=== PATIENT | male | born 1965 | race Caucasian/White ===

== ENCOUNTER 2017-08-09 08:19 | Emergency (ER) | payer OTHER ==
[~2017-08-09] VITALS: Ht 177.8 cm; Wt 72.6 kg
[2017-08-09] MEDS ORDERED: HYDROMORPHONE 4 MG/1 ML DISP.SYRIN ONE (08:30)
[2017-08-09] MEDS ORDERED: HYDROMORPHONE 1 MG/1 ML DISP.SYRIN IM ONE (08:30)
[2017-08-09] MEDS ORDERED: ONDANSETRON ODT 4 MG TAB.RAPDIS SL ONE (08:30)
[2017-08-09] MEDS ORDERED: ONDANSETRON ODT 4 MG TAB.RAPDIS ONE ×2 (08:31→08:38)
--- NOTE | 2017-08-09 11:34 | NUR ---
kehinde anderson talking to dr. cuellar for ortho consult.
[2017-08-09] MEDS ORDERED: PROPOFOL 200 MG/20 ML BOTTLE ONE (12:12)
--- NOTE | 2017-08-09 12:25 | NUR ---
DR. STINSON REDUCED THE RIGHT ANKLE WITHOUT DIFFICULTY. PT AWAKE AND ORIENTED IMMEDIARTELY. VS STABLE.
[2017-08-09] MEDS ORDERED: NEOMY/BACITRA/POLYMYXIN B OINT UD PACKET TP ONE ×2 (12:28→12:45)
[2017-08-09] MEDS ORDERED: ONDANSETRON 4 MG/2 ML VIAL ONE (12:38)
[2017-08-09] MEDS ORDERED: MORPHINE SULFATE 4 MG/1 ML DISP.SYRIN ONE (12:38)
[2017-08-09] MEDS ORDERED: ONDANSETRON 4 MG/2 ML VIAL IV ONE (12:45)
[2017-08-09] MEDS ORDERED: MORPHINE SULFATE 4 MG/1 ML DISP.SYRIN IV ONE (12:45)
[2017-08-09] MEDS ORDERED: PROPOFOL 200 MG/20 ML BOTTLE IV ONE (13:30)
--- NOTE | 2017-08-09 14:18 | NUR ---
Patient discharged to home in stable conditon. Written and verbal after care instructions given. Patient verbalizes understanding of instructions.PT HERE TO TAKE THE PT HOME. Addendum: 08/09/17 at 1642 by ANNIKA PT PAIN DOWN TO TOLERABLE LEVEL. PT REFUSES MORE PAIN MED AT THIS TIME. PT WILL FOLLOW UP WITH ORTHO.
[2017-08-09 15:51] VITALS: BP 131/87
[2017-08-16] MEDS ORDERED: ACET325T53 PO (14:59)
[2017-08-16] MEDS ORDERED: LACT1CAP57 PO (14:59)
[2017-08-16] MEDS ORDERED: CLIN300C11 PO (14:59)
== END 2017-08-09 14:18 | disposition home or self-care (01) ==
LOC: ER 08:19
DX: S82.851A Displaced trimalleolar fracture of right lower leg, initial encounter for closed fracture (principal); W01.0XXA Fall on same level from slipping, tripping and stumbling without subsequent striking against object, initial encounter; Y93.89 Activity, other specified; Y92.89 Other specified places as the place of occurrence of the external cause; Y99.8 Other external cause status
CPT/HCPCS: 73610; 73700; A4663; J1170; J2270; J2405; J3490; Q0162

== ENCOUNTER 2017-08-14 23:20 | Inpatient (IN) | payer OTHER ==
[~2017-08-14] VITALS: Ht 175.3 cm; Wt 76.2 kg
[2017-08-15] MEDS ORDERED: CLINDAMYCIN PHOSPHATE IV 600 MG in IV DEXTROSE 5% 100 ML IV ONE (00:15)
[2017-08-15] MEDS ORDERED: PIPERACILLIN SODIUM/TAZOBACTAM 3.375 G in IV DEXTROSE 5% 50 ML IV ONE (00:15)
[2017-08-15] MEDS ORDERED: KETAMINE HCL 500 MG/10 ML INJ IV ONE ×2 (00:15→03:00)
[2017-08-15] MEDS ORDERED: VANCOMYCIN IV 1,000 MG in IV DEXTROSE 5% 250 ML IV ONE (00:15)
[2017-08-15] MEDS ORDERED: IV NORMAL SALINE 1000 ML BAG IV ONE (00:15)
[2017-08-15] MEDS ORDERED: KETAMINE HCL 500 MG/10 ML INJ ONE ×2 (00:16→03:06)
[2017-08-15] MEDS ORDERED: PIPERACILLIN/TAZOBACTAM/D5W 50 ML IV ONE (00:16)
[2017-08-15 00:25] LABS: BASOPHILS # (AUTO) 0.1 K/uL (0.0-8.0); BASOPHILS % (AUTO) 0.8 % (0.0-2.0); EOSINOPHILS # (AUTO) 0.2 K/uL (0.0-0.7); EOSINOPHILS % (AUTO) 2.1 % (0.0-7.0); HEMATOCRIT 43.2 % (36.7-47.1); LYMPHOCYTES # (AUTO) 3.5 K/uL (20.0-40.0); LYMPHOCYTES % (AUTO) 38.3 % (20.5-51.5); MEAN CORPUSCULAR HEMOGLOBIN 30.1 uug (23.8-33.4); MEAN CORPUSCULAR HGB CONC 35 g/dL (32.5-36.3); MEAN CORPUSCULAR VOLUME 86.6 fL (73.0-96.2); MONOCYTES % (AUTO) 10.8 % (0.0-11.0); NEUTROPHILS # (AUTO) 4.4 K/uL (1.8-8.9); PLATELET COUNT (AUTO) 262 K/uL (152-348); RED BLOOD CELL COUNT(AUTO) 4.99 MIL/uL (4.06-5.63); WHITE BLOOD COUNT (AUTO) 9.1 K/uL (3.6-10.2)
--- NOTE | 2017-08-15 00:29 | NUR ---
PT IN BED. PT'S SPOUSE AT BEDSIDE. NS FLUID AND ANTIBIOTICS RUNNING. BREATH SOUNDS REGULAR AND UNLABORED. NO SIGNS OF DISTRESS WITNESSED BY NURSE OR STATED BY PT.
[2017-08-15 00:42] LABS: BILIRUBIN,DIRECT 0.2 mg/dL (0.0-0.2); BILIRUBIN,TOTAL 0.8 mg/dL (0.2-1.0); TOTAL PROTEIN, SERUM 8.1 g/dL (6.4-8.2)
[2017-08-15] MEDS ORDERED: CLINDAMYCIN PHOSPHATE 600 MG/4 ML VIAL ONE (01:02)
--- NOTE | 2017-08-15 01:21 | NUR ---
PAGED EPPIC PANEL DR MARTIN REQUESTED. WAITING FOR STEVEN ROMANO DNP TO CALL BACK
[2017-08-15 01:22] LABS: *BILIRUBIN,URIN NEGATIVE (NEGATIVE); *BLOOD, URINE 1+ (NEGATIVE); *CLARITY,URINE CLEAR (CLEAR); *COLOR,URINE YELLOW (YELLOW); *KETONES,URINE NEGATIVE (NEGATIVE); *PROTEIN,URINE NEGATIVE (NEGATIVE); *UROBILINOGEN,URINE 0.2 E.U./dl (NORMAL); LEUKOCYTE ESTERASE ,URINE NEGATIVE (NEGATIVE); NITRITE, URINE NEGATIVE (NEGATIVE); UGLUCOSE NEGATIVE (NEGATIVE)
--- NOTE | 2017-08-15 01:25 | NUR ---
DR MARTIN SPEAKING WITH STEVEN ROMANO DNP
[2017-08-15 01:49] LABS: BACTERIA,URINE NONE SEEN /HPF (NONE SEEN); MUCUS,URINE FEW /LPF (0-FEW); SQUAMOUS EPITHELIAL CELL,UR FEW /HPF (NONE SEEN); WBC,URINE 0-3 /HPF (0-3)
[2017-08-15] MEDS ORDERED: VANCOMYCIN IV 200 ML ONE (02:21)
--- NOTE | 2017-08-15 03:12 | NUR ---
IV KETAMINE DECLINED. PT REQUESTS PO PERCOCET
[2017-08-15] MEDS ORDERED: OXYCODONE/APAP 5-325 MG TABLET PO ONE (03:15)
[2017-08-15] MEDS ORDERED: OXYCODONE/APAP 5-325 MG TABLET ONE (03:17)
--- NOTE | 2017-08-15 03:41 | NUR ---
REPORT GIVEN TO MARGARITA ALLRED.
--- NOTE | 2017-08-15 04:05 | NUR ---
Pt. admitted to TELEMETRY, under care of Dr. PEPE Belongs List completed
--- NOTE | 2017-08-15 04:06 | NUR ---
Received patient via [employer] alert and oriented x 4 with at bedside. Pt complaining of pain on R foot/ankle, which is noted to be swelling with serosanguineous discharge. Right leg/foot elevated via pillows. Tele noted to be sinus rhythm with HR in the 90's. No respiratory distress noted at this time. Vital signs WNL. Unit orientation provided. Will continue to monitor.
[2017-08-15] MEDS ORDERED: MAGNESIUM HYDROXIDE 30 ML LIQUID UDC PO PRN (04:45)
[2017-08-15] MEDS ORDERED: HYDROMORPHONE 2 MG/1 ML DISP.SYRIN IV PRN (04:45)
[2017-08-15] MEDS ORDERED: ACETAMINOPHEN 325 MG TABLET PO PRN (04:45)
[2017-08-15] MEDS ORDERED: Z GUARD REMEDY PASTE 57 GM TUBE TOP PRN (04:45)
[2017-08-15] MEDS: HYDROCODONE/APAP 10-325 MG TABLET PO PRN (05:18)
[2017-08-15] MEDS: IV NS 1000 ML 1,000 ML IV PRN (05:20)
[2017-08-15 06:53] LABS: BASOPHILS # (AUTO) 0.1 K/uL (0.0-8.0); BASOPHILS % (AUTO) 0.7 % (0.0-2.0); EOSINOPHILS # (AUTO) 0.1 K/uL (0.0-0.7); HEMATOCRIT 40.5 % (36.7-47.1); HEMOGLOBIN 13.8 g/dL (12.5-16.3); LYMPHOCYTES # (AUTO) 2.6 K/uL (20.0-40.0); LYMPHOCYTES % (AUTO) 28.2 % (20.5-51.5); MEAN CORPUSCULAR HEMOGLOBIN 30.1 uug (23.8-33.4); MEAN CORPUSCULAR HGB CONC 34 g/dL (32.5-36.3); MEAN CORPUSCULAR VOLUME 88.1 fL (73.0-96.2); MONOCYTES # (AUTO) 0.8 K/uL (2.0-10.0); MONOCYTES % (AUTO) 8.3 % (0.0-11.0); NEUTROPHILS # (AUTO) 5.6 K/uL (1.8-8.9); NEUTROPHILS % (AUTO) 61.8 % (38.5-71.5); PLATELET COUNT (AUTO) 230 K/uL (152-348); RED BLOOD CELL COUNT(AUTO) 4.59 MIL/uL (4.06-5.63); WHITE BLOOD COUNT (AUTO) 9.1 K/uL (3.6-10.2)
[2017-08-15 07:40] LABS: MAGNESIUM 2.1 mg/dL (1.8-2.4); PHOSPHOROUS 3.9 mg/dL (2.5-4.9); POTASSIUM 4.2 mmol/L (3.5-5.1)
[2017-08-15] MEDS ORDERED: MORPHINE SULFATE 4 MG/1 ML DISP.SYRIN IV ONE (08:00)
--- NOTE | 2017-08-15 08:00 | NUR ---
ALERT AND ORIENTED X3 NO SS OF DISTRESS OR CP, CONTINUE WITH PAIN MANAGEMENT. RIGHT LEG NOTED WITH BLISTER AND NECROSIS SKIN WITH MODERATE DRAINAGE. DENIES NUMBNESS, ABLE TO WIGGLE TOES FREELY. BARD TO PALPATE PEDAL PULSE DUE TO SWELLING. CLOSELY MONITORED. SR ON MONITOR
[2017-08-15 08:01] LABS: THYROID STIMULATING HORMONE 0.857 mIU/mL (0.358-3.740)
[2017-08-15] MEDS: CLINDAMYCIN PHOSPHATE IV 900 MG in IV DEXTROSE 5% 100 ML IV SCH ×2 (08:09→16:39)
[2017-08-15] MEDS: PIPERACILLIN SODIUM/TAZOBACTAM 4.5 G in IV DEXTROSE 5% 50 ML IV SCH ×3 (08:09→23:21)
[2017-08-15] MEDS: ENOXAPARIN SODIUM 40 MG/0.4 ML DISP.SYRIN SQ SCH (08:15)
--- NOTE | 2017-08-15 10:00 | NUR ---
AT BEDSIDE VERY CONCERN OF PATIENT STATUS, SPOKE WITH BRICK OR BLOCK MAKER THE ISSUE. CONTACTED [employer] PER BRICK OR BLOCK MAKER
--- NOTE | 2017-08-15 10:35 | NUR ---
CLINICAL PHARMACY NOTE: VANCOMYCIN PHARMACY TO DOSE Subjective: To start vanco for this 52 y/o male for cellulitis (necrotic tissue?- waiting for MD note) Patient received vanco 1gm IVPB x1 in ED on 08/15 at 0230 Objective: height 175 cm weight 76.2 kg BUN 14 Scr 1 wbc 9.1 temp 98.4 Assessment/Plan Will start vanco 1250mg IVPB q13h for predicted vanco trough level of 16.5 mcg/ml at steady state. 1st dose is due today at 1200. Plan to draw vanco trough level before 4th dose (not yet ordered). Will monitor renal function & adjust the dose if needed. Will follow
[2017-08-15 11:07] VITALS: BP 132/94
[2017-08-15] MEDS: VANCOMYCIN IV 1,250 MG in IV DEXTROSE 5% 500 ML IV SCH (11:46)
--- NOTE | 2017-08-15 12:00 | NUR ---
AWAITING ORTHO AND WOUND WOUND CONSULT DR PEPE ALSO AWARE OF PATIENT STATUS
--- NOTE | 2017-08-15 14:48 | NUR ---
DR WARD CALLED COR CONSULT SPOKE WITH PATIENT AND ABOUT PLAN OF CARE. PT KEPT NPO FOR POSSIBLE DEBRIDEMENT THIS EVENING
[2017-08-15 15:06] VITALS: BP 141/97
[2017-08-15] MEDS: MORPHINE SULFATE 4 MG/1 ML DISP.SYRIN IV PRN ×2 (15:28→20:33)
[2017-08-15] MEDS: ONDANSETRON 4 MG/2 ML VIAL IV PRN ×2 (15:37→22:05)
--- NOTE | 2017-08-15 15:49 | NUR ---
NAUSEATED MEDICATED WITH ZOFRAN WILL OBSERVE
[2017-08-15] MEDS: SODIUM HYPOCHLORITE 0.5% TOP SCH (16:39)
--- NOTE | 2017-08-15 18:58 | NUR ---
SEEN BY DR YANG AND DR WARD FOR WOUND AND ORTHO CONSULT SEE NOTES
[2017-08-15 20:00] VITALS: BP 147/87
[2017-08-15] MEDS: LACTOBACILLUS RHAMNOSUS GG 1 EACH CAPSULE PO SCH (20:33)
[2017-08-16] MEDS: MORPHINE SULFATE 4 MG/1 ML DISP.SYRIN IV PRN ×3 (00:01→10:05)
[2017-08-16] MEDS: IV NS 1000 ML 1,000 ML IV PRN (01:27)
[2017-08-16] MEDS: CLINDAMYCIN PHOSPHATE IV 900 MG in IV DEXTROSE 5% 100 ML IV SCH ×2 (01:53→08:35)
--- NOTE | 2017-08-16 02:00 | NUR ---
WOUND CARE PROVIDED. PT TOLERATED IT WELL.
[2017-08-16 04:47] VITALS: BP 116/65
--- NOTE | 2017-08-16 05:30 | NUR ---
SECOND DRESSING CHANGE/WOUND CARE PROVIDED. WOUND REMAINS INTACT WITH NO ODOR AND DISCHARGE NOTED. RIGHT FOOT KEPT ELEVATED VIA PILLOWS. CALL LIGHT WITHIN REACH. SAFETY MEASURES PROVIDED. WILL CONTINUE TO MONITOR.
[2017-08-16 06:45] LABS: BASOPHILS # (AUTO) 0.1 K/uL (0.0-8.0); BASOPHILS % (AUTO) 0.7 % (0.0-2.0); EOSINOPHILS # (AUTO) 0.2 K/uL (0.0-0.7); EOSINOPHILS % (AUTO) 2.2 % (0.0-7.0); HEMATOCRIT 38.1 % (36.7-47.1); HEMOGLOBIN 13.2 g/dL (12.5-16.3); LYMPHOCYTES # (AUTO) 2.6 K/uL (20.0-40.0); LYMPHOCYTES % (AUTO) 33.5 % (20.5-51.5); MEAN CORPUSCULAR HEMOGLOBIN 30.3 uug (23.8-33.4); MEAN CORPUSCULAR HGB CONC 35 g/dL (32.5-36.3); MEAN CORPUSCULAR VOLUME 87.5 fL (73.0-96.2); MONOCYTES # (AUTO) 0.9 K/uL (2.0-10.0); MONOCYTES % (AUTO) 11.2 % (0.0-11.0); NEUTROPHILS # (AUTO) 4.1 K/uL (1.8-8.9); NEUTROPHILS % (AUTO) 52.4 % (38.5-71.5); PLATELET COUNT (AUTO) 233 K/uL (152-348); RED BLOOD CELL COUNT(AUTO) 4.36 MIL/uL (4.06-5.63); WHITE BLOOD COUNT (AUTO) 7.9 K/uL (3.6-10.2)
[2017-08-16 06:51] LABS: CREATININE 1.2 mg/dL (0.6-1.3); MAGNESIUM 2.2 mg/dL (1.8-2.4); POTASSIUM 3.9 mmol/L (3.5-5.1)
--- NOTE | 2017-08-16 07:44 | NUR ---
RESTING IN BED WITH SS OF ACUTE PAIN OR DISTRESS. RIGHT LEG ELEVATED WITH 2-3 PILLOWS. AFEBRILE
[2017-08-16] MEDS: LACTOBACILLUS RHAMNOSUS GG 1 EACH CAPSULE PO SCH (08:31)
[2017-08-16] MEDS: PIPERACILLIN SODIUM/TAZOBACTAM 4.5 G in IV DEXTROSE 5% 50 ML IV SCH (08:35)
[2017-08-16] MEDS: ENOXAPARIN SODIUM 40 MG/0.4 ML DISP.SYRIN SQ SCH (08:35)
[2017-08-16] MEDS: HYDROCODONE/APAP 10-325 MG TABLET PO PRN (08:36)
[2017-08-16] MEDS: SODIUM HYPOCHLORITE 0.5% TOP SCH (08:37)
[2017-08-16] MEDS: ONDANSETRON 4 MG/2 ML VIAL IV PRN (10:07)
[2017-08-16] MEDS ORDERED: MORPHINE SULFATE 2 MG/1 ML DISP.SYRIN IV ONE (12:00)
--- NOTE | 2017-08-16 12:00 | NUR ---
tolerating iv antibiotics, no reaction noted
[2017-08-16 12:08] VITALS: BP 120/78
[2017-08-16 12:22] LABS: BILIRUBIN,DIRECT 0.1 mg/dL (0.0-0.2); BILIRUBIN,TOTAL 0.9 mg/dL (0.2-1.0); TOTAL PROTEIN, SERUM 6.9 g/dL (6.4-8.2)
--- NOTE | 2017-08-16 14:00 | NUR ---
Refused wound to be pictured, patient in a hurry to be discharged to catch doctors appt, seen by dr chapman with orders
[2017-08-16] MEDS: VANCOMYCIN IV 1,250 MG in IV DEXTROSE 5% 500 ML IV SCH ×3 (14:14)
--- NOTE | 2017-08-16 14:50 | NUR ---
CLINICAL PHARMACY NOTE: VANCOMYCIN PHARMACY TO DOSE Subjective: To continue vanco for this 52 y/o male for cellulitis (necrotizing fasciitis). On Clindamycin also. Objective: height 175 cm weight 76.2 kg BUN 9 Scr 1.2 wbc 7.9 temp 99.2 Assessment/Plan Will continue vanco 1250mg IVPB q13h for predicted vanco trough level of 16.5 mcg/ml at steady state. 3rd dose is due today at 1400. Plan to draw vanco trough level before 4th dose (ordered for tomorrow at 0230). Will monitor renal function & adjust the dose if needed. Will follow
[2017-08-16] MEDS ORDERED: CLIN300C11 PO (14:59)
[2017-08-16] MEDS ORDERED: HYDR-548 PO (14:59)
[2017-08-16] MEDS ORDERED: LACT1CAP57 PO (14:59)
[2017-08-16] MEDS ORDERED: ACET325T53 PO (14:59)
[2017-08-16 15:13] VITALS: BP 139/79
--- NOTE | 2017-08-16 15:18 | NUR ---
discharge home stable with RX and follow-up instruction with pcp and ortho doctor, rx instruction given to
== END 2017-08-16 15:20 | disposition home or self-care (01) | DRG 143 ==
LOC: ER 23:24 → TELE 08-15 03:20 → MED 08-15 12:08
PROVIDERS: ADMIT Nurse Practitioner Acute Care; ATTEND Internal Medicine
DX: T79.7XXA Traumatic subcutaneous emphysema, initial encounter (principal); D68.59 Other primary thrombophilia; L03.115 Cellulitis of right lower limb; S82.851A Displaced trimalleolar fracture of right lower leg, initial encounter for closed fracture; S93.06XA Dislocation of unspecified ankle joint, initial encounter; K59.00 Constipation, unspecified; W16.012A Fall into swimming pool striking water surface causing other injury, initial encounter; Y92.34 Swimming pool (public) as the place of occurrence of the external cause; Z74.09 Other reduced mobility; R60.0 Localized edema; E78.5 Hyperlipidemia, unspecified; Z86.79 Personal history of other diseases of the circulatory system; Z86.39 Personal history of other endocrine, nutritional and metabolic disease
CPT/HCPCS: 36415; 70030-TC; 71045; 73590; 73630; 73700; 83605; 83735; 84100; 84443; 85025; 85730; 87040; 87070; 87077; 87086; 93005; A4217; A4663; J1650; J2270; J2405; J2543; J3370; J3490; J7030; J7060